=== PATIENT | female | born 1940 | race Caucasian/White ===

== ENCOUNTER 2024-06-07 12:09 | Emergency (ER) | payer MEDICARE ==
[~2024-06-07] VITALS: Ht 165.1 cm; Wt 63.5 kg
[2024-06-07 16:06] VITALS: BP 138/63
[2024-06-07 17:44] LABS: Hematocrit 31.1 % (33.0-51.0); Hemoglobin 9.8 g/dL (11.5-16.0); Mean Corpuscular HGB 24.3 pg (26.0-34.0); Mean Corpuscular HGB Conc 31.5 g/dL (31.5-36.5); Mean Corpuscular Volume 77 fL (80-100); RDW Coefficient Variation 16.4 % (11.7-14.2); RDW Standard Deviation 46.5 fL (35.1-46.3); Red Blood Cell Count 4.04 M/mm3 (3.80-5.20); White Blood Cell Count 15.98 K/mm3 (4.00-11.30)
[2024-06-07 17:51] LABS: Albumin, Blood 2.3 g/dL (3.4-5.0); Albumin/Globulin Ratio 0.6 (0.8-1.8); Bilirubin, Total 0.7 mg/dL (0.1-1.0); Bun/Creatinine Ratio 29.8 (12.0-20.0); Calcium, Blood 7.9 mg/dL (8.5-10.1); Creatinine, Blood 0.81 mg/dL (0.40-1.00); Globulin, Blood 4.1 g/dL (2.2-4.0); Potassium, Blood 4.6 mmol/L (3.5-5.5); Total Protein, Blood 6.4 g/dL (6.4-8.2)
[2024-06-07 18:41] LABS: BASOPHILS PERCENT MAN 0 % (0-2); EOSINOPHILS PERCENT MAN 0 % (0-6); LYMPHOCYTES ABSOLUTE MAN 8.94 K/mm3 (0.84-5.20); LYMPHOCYTES PERCENT MAN 56 % (21-46); MONOCYTES PERCENT MAN 0 % (4-13); NEUTROPHILS ABSOLUTE MAN 7.03 K/mm3 (1.96-9.15); SEG NEUTROPHILS PERCENT MAN 44 % (41-73); TOTAL CELLS COUNTED 100
[2024-06-07 18:42] LABS: Platelet Count 255 K/mm3 (150-400)
[2024-06-07 18:43] LABS: Mean Platelet Volume 10.1 fL (9.1-12.4)
== END 2024-06-07 20:35 | disposition home or self-care (01) ==
LOC: ER 12:09
PROVIDERS: Physician Assistant
DX: R55 Syncope and collapse (principal); I10 Essential (primary) hypertension; E11.9 Type 2 diabetes mellitus without complications
CPT/HCPCS: 70450; 80053; 84484; 85025; 93005; 93010; 99284-25

== ENCOUNTER → 2024-09-27 | Outpatient (CLI) | payer MEDICARE ==
[2024-09-27 12:16] LABS: Creatinine Urine 46.5 mg/dL (27.00-270.00); Protein, Urine Quantitative 92.8 mg/dL (0.0-11.9)
== END ==
LOC: LAB 09:42 → LAB SHORT 09:42
PROVIDERS: Internal Medicine Nephrology
DX: N18.30 Chronic kidney disease, stage 3 unspecified (principal); D63.1 Anemia in chronic kidney disease; N25.81 Secondary hyperparathyroidism of renal origin; E55.9 Vitamin D deficiency, unspecified; E78.00 Pure hypercholesterolemia, unspecified; R76.9 Abnormal immunological finding in serum, unspecified; R94.5 Abnormal results of liver function studies; R94.6 Abnormal results of thyroid function studies; D51.8 Other vitamin B12 deficiency anemias; D52.8 Other folate deficiency anemias; D50.9 Iron deficiency anemia, unspecified
CPT/HCPCS: 81050; 82043; 82570; 84156

== ENCOUNTER 2024-11-05 10:51 | Observation (INO) | payer MEDICARE ==
[~2024-11-05] VITALS: Ht 167.6 cm; Wt 72.6 kg
[2024-11-05 12:01] LABS: BASOPHILS ABSOLUTE AUTO 0.06 K/mm3 (0.00-0.23); BASOPHILS PERCENT AUTO 0 % (0-2); EOSINOPHILS ABSOLUTE AUTO 0.02 K/mm3 (0.00-0.68); EOSINOPHILS PERCENT AUTO 0 % (0-6); Hematocrit 39.8 % (33.0-51.0); Hemoglobin 13.4 g/dL (11.5-16.0); IMMATURE GRAN ABSOLUTE AUTO 0.07 K/mm3 (0.00-0.10); IMMATURE GRAN PERCENT AUTO 1 % (0-1); LYMPHOCYTES ABSOLUTE AUTO 2.27 K/mm3 (0.84-5.20); LYMPHOCYTES PERCENT AUTO 15 % (21-46); MONOCYTES ABSOLUTE AUTO 0.69 K/mm3 (0.16-1.47); MONOCYTES PERCENT AUTO 5 % (4-13); Mean Corpuscular HGB 29.6 pg (26.0-34.0); Mean Corpuscular HGB Conc 33.7 g/dL (31.5-36.5); Mean Corpuscular Volume 88 fL (80-100); Mean Platelet Volume 10.5 fL (9.1-12.4); NEUTROPHILS ABSOLUTE AUTO 12.05 K/mm3 (1.96-9.15); NEUTROPHILS PERCENT AUTO 79 % (41-73); Platelet Count 144 K/mm3 (150-400); RDW Coefficient Variation 14.2 % (11.7-14.2); RDW Standard Deviation 45.4 fL (35.1-46.3); Red Blood Cell Count 4.52 M/mm3 (3.80-5.20); White Blood Cell Count 15.16 K/mm3 (4.00-11.30)
[2024-11-05 12:13] LABS: Albumin, Blood 3.3 g/dL (3.4-5.0); Albumin/Globulin Ratio 0.9 (0.8-1.8); Bilirubin, Total 1.1 mg/dL (0.1-1.0); Bun/Creatinine Ratio 25.6 (12.0-20.0); Creatinine, Blood 0.94 mg/dL (0.40-1.00); Globulin, Blood 3.8 g/dL (2.2-4.0); Potassium, Blood 4.7 mmol/L (3.5-5.5); Total Protein, Blood 7.1 g/dL (6.4-8.2)
[2024-11-05] MEDS ORDERED: Ondansetron HCl 2 MG / ML 2ML Vial ONE (12:24)
[2024-11-05] MEDS ORDERED: Ondansetron HCl 2 MG / ML 2ML Vial IV ONE (12:35)
[2024-11-05] MEDS ORDERED: Aspirin 325 MG Tab PO ONE (15:25)
[2024-11-05] MEDS ORDERED: Atorvastatin 10 MG Tab PO ONE (15:25)
[2024-11-05] MEDS ORDERED: Lactated Ringer's 1,000 ML IV ONE (15:30)
[2024-11-05 16:28] LABS: Source, Urine Straight Cath
[2024-11-05 16:32] LABS: Appearance, Urine Clear (Clear); Bilirubin, Urine Neg (Neg); Blood, Urine 4+ (Neg); Color, Urine Yellow (P-Yellow); Glucose Qualitative, Urine Neg (Neg); Ketones, Urine Neg (Neg); Leukocyte Esterase, Urine Neg (Neg); Nitrite, Urine Neg (Neg); Protein, Urine 4+ (Neg); Urobilinogen, Urine NORM (Normal)
[2024-11-05 16:35] LABS: Appearance, Urine Clear (Clear); Bilirubin, Urine Neg (Neg); Blood, Urine 4+ (Neg); Color, Urine Yellow (P-Yellow); Ketones, Urine Neg (Neg); Leukocyte Esterase, Urine Neg (Neg); Nitrite, Urine Neg (Neg); Protein, Urine 4+ (Neg); Urobilinogen, Urine NORM (Normal)
[2024-11-05] MEDS ORDERED: Magnesium Hydroxide Conc 10 ML UDC PO PRN (16:35)
[2024-11-05] MEDS ORDERED: Ondansetron 4 MG TAB PO PRN (16:35)
[2024-11-05] MEDS ORDERED: CefTRIAXone Sodium 1,000 MG in NS 100 ML IV SCH (16:37)
[2024-11-05 16:39] LABS: Red Blood Cells, Urine 25-50 /hpf (0-2)
[2024-11-05 16:40] LABS: Bacteria Few /hpf; Renal Epithelial Rare /hpf (0-Rare); Squamous Epithelial Cells Few /hpf (Few)
[2024-11-05] MEDS ORDERED: Bisacodyl 10 MG Supp PR PRN (16:40)
[2024-11-05] MEDS ORDERED: Acetaminophen 325 MG TABLET PO PRN (16:40)
[2024-11-05 16:41] LABS: Glucose Qualitative, Urine Neg (Neg)
[2024-11-05] MEDS ORDERED: NS 1,000 ML IV SCH (17:00)
[2024-11-05 18:19] VITALS: BP 182/80
[2024-11-05] MEDS ORDERED: ATOR10 PO (18:39)
[2024-11-05] MEDS ORDERED: [UNRECOGNIZED DRUG - CODE] PO (18:42)
[2024-11-05 20:06] VITALS: BP 147/72
[2024-11-05] MEDS ORDERED: Docusate Sodium 100 MG Cap PO SCH (21:00)
[2024-11-05] MEDS ORDERED: Sennosides 8.6 MG Tab PO SCH (21:00)
[2024-11-05] MEDS ORDERED: Lactobacil 2-S.Thermo-Bifido 1 1 Cap PO SCH (21:00)
[2024-11-06 00:05] VITALS: BP 128/74
[2024-11-06 04:56] LABS: BASOPHILS ABSOLUTE AUTO 0.08 K/mm3 (0.00-0.23); BASOPHILS PERCENT AUTO 1 % (0-2); EOSINOPHILS ABSOLUTE AUTO 0.18 K/mm3 (0.00-0.68); EOSINOPHILS PERCENT AUTO 2 % (0-6); Hematocrit 33.3 % (33.0-51.0); Hemoglobin 11.2 g/dL (11.5-16.0); IMMATURE GRAN ABSOLUTE AUTO 0.07 K/mm3 (0.00-0.10); IMMATURE GRAN PERCENT AUTO 1 % (0-1); LYMPHOCYTES ABSOLUTE AUTO 2.69 K/mm3 (0.84-5.20); LYMPHOCYTES PERCENT AUTO 26 % (21-46); MONOCYTES ABSOLUTE AUTO 0.76 K/mm3 (0.16-1.47); MONOCYTES PERCENT AUTO 7 % (4-13); Mean Corpuscular HGB 29.5 pg (26.0-34.0); Mean Corpuscular HGB Conc 33.6 g/dL (31.5-36.5); Mean Corpuscular Volume 88 fL (80-100); Mean Platelet Volume 11.3 fL (9.1-12.4); NEUTROPHILS ABSOLUTE AUTO 6.53 K/mm3 (1.96-9.15); NEUTROPHILS PERCENT AUTO 63 % (41-73); Platelet Count 135 K/mm3 (150-400); RDW Coefficient Variation 14.1 % (11.7-14.2); White Blood Cell Count 10.31 K/mm3 (4.00-11.30)
[2024-11-06 05:10] VITALS: BP 145/72
[2024-11-06 05:32] LABS: Albumin, Blood 2.8 g/dL (3.4-5.0); Bilirubin, Total 0.6 mg/dL (0.1-1.0); Bun/Creatinine Ratio 20.4 (12.0-20.0); Calcium, Blood 8.8 mg/dL (8.5-10.1); Creatinine, Blood 1.03 mg/dL (0.40-1.00); Globulin, Blood 2.9 g/dL (2.2-4.0); Potassium, Blood 3.8 mmol/L (3.5-5.5); Total Protein, Blood 5.7 g/dL (6.4-8.2)
[2024-11-06 08:34] VITALS: BP 165/66
[2024-11-06] MEDS ORDERED: Aspirin 81 MG TabEC PO SCH (09:00)
[2024-11-06] MEDS ORDERED: Enoxaparin 40 MG/0.4 ML SYR SC SCH (09:00)
[2024-11-06] MEDS ORDERED: Atorvastatin 40 MG Tab PO SCH (09:00)
[2024-11-06] MEDS ORDERED: Clopidogrel Bisulfate 75 MG Tab PO SCH (12:00)
[2024-11-06] MEDS ORDERED: CLOP75 PO (13:56)
[2024-11-06] MEDS ORDERED: ASPI81CH PO (13:56)
== END 2024-11-06 14:59 | disposition home or self-care (01) ==
LOC: ER 10:51 → MEDS 10:53
PROVIDERS: Emergency Medicine; Student in an Organized Health Care Education/Training Program; ADMIT Internal Medicine
DX: G45.9 Transient cerebral ischemic attack, unspecified (principal); N20.1 Calculus of ureter; R73.03 Prediabetes; I12.9 Hypertensive chronic kidney disease with stage 1 through stage 4 chronic kidney disease, or unspecified chronic kidney disease; N18.9 Chronic kidney disease, unspecified; G93.40 Encephalopathy, unspecified; C95.90 Leukemia, unspecified not having achieved remission; Z66 Do not resuscitate; Z79.82 Long term (current) use of aspirin; Z79.899 Other long term (current) drug therapy
CPT/HCPCS: 36415; 70450; 70496; 70498; 70551; 80053; 81001; 85025; 93005; 93010; 93308; 93321; 96365-59; 96366; 96372; 96375-59; 97116; 97161; 99285-25; A9270; G0378; J0696; J1650; J2405; J7030; Q9967

== ENCOUNTER → 2025-03-30 | Outpatient (CLI) | payer MEDICARE ==
[~2025-03-30] MED LIST: ASPI81CH PO; ATOR10 PO; CLOP75 PO; [UNRECOGNIZED DRUG - CODE] PO
[2025-03-30 11:45] LABS: Bilirubin, Urine Neg (Neg); Color, Urine Yellow (P-Yellow); Glucose Qualitative, Urine Neg (Neg); Ketones, Urine Neg (Neg); Leukocyte Esterase, Urine 2+ (Neg); Protein, Urine 3+ (Neg); Specific Gravity, Urine 1.015 (1.003-1.022); Urobilinogen, Urine NORM (Normal)
[2025-03-30 12:09] LABS: Red Blood Cells, Urine 0-2 /hpf (0-2); White Blood Cells, Urine 50-100 /hpf (0-5)
== END ==
LOC: LAB 10:30 → LAB SHORT 10:30 → LAB FUT 03-30 08:10 → EDSTATUS 03-30 08:10
PROVIDERS: Physician Assistant
DX: N20.2 Calculus of kidney with calculus of ureter (principal)
CPT/HCPCS: 81001; 87077; 87086; 87186